=== PATIENT | male | born 1985 | race Caucasian/White ===

== ENCOUNTER 2019-09-03 12:25 | Emergency (ER) | payer OTHER ==
[~2019-09-03] VITALS: Ht 190.5 cm; Wt 99.8 kg
[2019-09-03] MEDS ORDERED: NEOMY/BACITR/POLYMYXIN OINT PACKET. TP ONE (12:45)
[2019-09-03] MEDS ORDERED: CLIN300C8 PO (12:46)
--- NOTE | 2019-09-03 12:48 | PHYS DOC ---
Past History Past Medical History: No Pertinent History Additional Past Surgical Histo: right shoulder, left forearm (artery repair) Smoking: Non-smoker Alcohol Use: Occasionally Drug Use: None Adult General Chief Complaint Chief Complaint: Laceration HPI HPI 33-year-old male presents with report of right calf laceration which occurred just prior to arrival. Patient reports his leg got caught on the receiving hitch corner of go-cart. Reports he used hydrogen peroxide to area prior to arrival. Reports last tetanus shot less than 5 years ago. Reports given size of wound presents to ER for further evaluation. Denies use of blood thinners. Denies history of diabetes or other known immune compromised state. Review of Systems Review of Systems Constitutional: Denies fever or chills Eyes: Denies redness or eye pain HENT: Denies nasal congestion or sore throat Respiratory: Denies cough or shortness of breath Cardiovascular: Denies chest pain or palpitations GI: Denies abdominal pain, nausea, or vomiting : Denies dysuria or hematuria Musculoskeletal: Denies back pain or joint pain Integument: Denies rash; reports laceration to right calf Neurologic: Denies headache, focal weakness or sensory changes Complete systems were reviewed and found to be within normal limits, except as documented in this note. Physical Exam Physical Exam Constitutional: Well developed, well nourished, no acute distress, non-toxic shannan earance HENT: Normocephalic, atraumatic, oropharynx moist Eyes: Conjunctiva normal, no discharge Neck: Normal range of motion, no tenderness, supple Lungs & Thorax: No respiratory distress Skin: Warm, dry, 5cm laceration to right mid calf, mild bleeding noted, no pulsatile Extremities: No tenderness, ROM intact, no edema, left PT and DP + 2 Neurologic: Alert and oriented X 3, no focal deficits noted Psychologic: Affect normal, judgement normal EKG EKG [] Radiology/Procedures Radiology/Procedures [] Course & Med Decision Making Course & Med Decision Making Patient presents with laceration to right calf. Tetanus up-to-date. Wound cleaned and copiously irrigated. Laceration repaired and dressed. Patient stable for discharge with outpatient follow-up with PCP. Discussed findings and plan with patient and family, who acknowledge understanding and agreement. Dragon Disclaimer Dragon Disclaimer This electronic medical record was generated, in whole or in part, using a voice recognition dictation system. Laceration/Wound Repair Laceration/Wound Repair : Wound Location: lower extremity (right calf) Wound's Depth, Shape: linear Wound Length (cm): 5 Wound Explored: no foreign body removed Irrigated w/ Saline (ccs): 200 Anesthesia: Lidocaine w/ Epi (2%) Volume Anesthetic (ccs): 3 Wound Debrided: minimal Wound Repaired With: sutures Suture Size/Type: 3:0, nylon Number of Sutures: 8 Progress Verbal consent obtained. Time out performed. Hand hygiene utilized. Wound cleaned with ChloraPrep. Anesthesia obtained via a 25-gauge hypodermic needle with (3) mL's of lidocaine 2% with epinephrine. Copious irrigation performed. Wound well approximated with 3-0 Nylon x 8 sutures ( horizontal mattress x , simple interrupted x ). Patient tolerated procedure well and without difficulty. Empiric antibiotic ointment applied prior to sterile dressing. Departure Departure: Impression: Primary Impression: Laceration of right calf without complication Disposition: 01 HOME, SELF-CARE Condition: STABLE Patient Instructions: Laceration Care, Adult, [id number] Additional Instructions: Do not soak your wound. You may shower. Clean wound daily with soap and water. Change dressing 2 times daily. Use over the counter antibiotic ointment with each dressing change. Sutures need to be removed in 7-10 days. Present to your family doctor or local urgent care for removal. You may also present to the ED but it will be an a dditional visit/charge. After suture removal you may use Vitamin E ointment to soften the wound and prevent scarring. Scripts Clindamycin Hcl (CLINDAMYCIN HCL) 300 Mg Capsule 1 CAP PO TID for infection for 7 Days, #21 CAP Prov: ANASTASIYA STEPHENSON DO 09/03/19 Problem Qualifiers Primary Impression: Laceration of right calf without complication Encounter type: initial encounter Qualified Codes: S81.811A - Laceration without foreign body, right lower leg, initial encounter ANASTASIYA STEPHENSON DO Sep 03, 2019 12:48
[2019-09-03] MEDS ORDERED: CLINDAMYCIN HCL 150 MG CAPSULE PO ONE (13:15)
[2019-09-03] MEDS ORDERED: LIDOCAINE 2%/EPI 1:100,000 20 ML VIAL. IJ ONE (13:15)
[2019-09-03 13:44] VITALS: BP 134/74
== END 2019-09-03 13:31 | disposition home or self-care (01) ==
LOC: ER 12:30
DX: S81.811A Laceration without foreign body, right lower leg, initial encounter (principal); W23.0XXA Caught, crushed, jammed, or pinched between moving objects, initial encounter; Y93.89 Activity, other specified; Y92.89 Other specified places as the place of occurrence of the external cause; Y99.8 Other external cause status
CPT/HCPCS: 12002; 99283